=== PATIENT | female | born 1960 | race Caucasian/White ===

== ENCOUNTER → 2016-08-28 | Day surgery (SDC) | payer BC ==
[~2016-08-28] VITALS: Ht 165.1 cm; Wt 95.4 kg
[~2016-08-28] MED LIST: ADVIL200 MG PO; ASPIRIN325 MG PO; FLEXERIL10 MG PO; GINGER500 MG PO; GLUCOSAMINE CH1 EAC3 PO; LYRICA75 MG PO; MAGNESIUM250 M1 PO; PEPCID20 MG PO; PERCOCET 5-3251 EACH PO; POTASSIUM99 MG PO; THERA-VITE W/ B1 TAB PO; TUMS REGULAR ST1 TAB PO; TURMERIC500 MG PO; TYLENOL ARTHRI650 MG PO; TYLENOL EXTRA500 MG PO; VITAMIN D35000 UNI1 PO
== END ==
LOC: GPOC 08-20 14:00 → GSDC 08-20 14:00
PROC: 3E0S33Z Introduction of Anti-inflammatory into Epidural Space, Percutaneous Approach (ICD-10-PCS; principal; 2016-08-28)
DX: M48.06 Spinal stenosis, lumbar region (principal); M51.26 Other intervertebral disc displacement, lumbar region; Z79.82 Long term (current) use of aspirin; Z79.899 Other long term (current) drug therapy
CPT/HCPCS: J1030; J1040

== ENCOUNTER → 2016-09-25 | Day surgery (SDC) | payer BC ==
[~2016-09-25] VITALS: Ht 165.1 cm; Wt 97.1 kg
== END | disposition disaster alternative care site (69) ==
LOC: GPOC 09-24 14:00 → GSDC 12:00
PROC: 3E0R33Z Introduction of Anti-inflammatory into Spinal Canal, Percutaneous Approach (ICD-10-PCS; principal; 2016-09-25)
PROC: 3E0R3BZ Introduction of Anesthetic Agent into Spinal Canal, Percutaneous Approach (ICD-10-PCS; 2016-09-25)
DX: M51.16 Intervertebral disc disorders with radiculopathy, lumbar region (principal); M48.06 Spinal stenosis, lumbar region; M47.26 Other spondylosis with radiculopathy, lumbar region; Z79.82 Long term (current) use of aspirin; Z79.1 Long term (current) use of non-steroidal anti-inflammatories (NSAID); Z79.899 Other long term (current) drug therapy; Z88.8 Allergy status to other drugs, medicaments and biological substances; Z90.49 Acquired absence of other specified parts of digestive tract; Z98.51 Tubal ligation status; Z98.890 Other specified postprocedural states
CPT/HCPCS: J1040

== ENCOUNTER → 2016-10-09 | Day surgery (SDC) | payer BC | END | disposition disaster alternative care site (69) | LOC: GSDC 12:00 | PROC: 3E0R3BZ Introduction of Anesthetic Agent into Spinal Canal, Percutaneous Approach (ICD-10-PCS; principal; 2016-10-09) | PROC: 3E0R33Z Introduction of Anti-inflammatory into Spinal Canal, Percutaneous Approach (ICD-10-PCS; 2016-10-09) | DX: M47.817 Spondylosis without myelopathy or radiculopathy, lumbosacral region (principal); M48.06 Spinal stenosis, lumbar region; M51.26 Other intervertebral disc displacement, lumbar region; M46.96 Unspecified inflammatory spondylopathy, lumbar region; Z88.8 Allergy status to other drugs, medicaments and biological substances; Z79.82 Long term (current) use of aspirin; Z79.1 Long term (current) use of non-steroidal anti-inflammatories (NSAID); Z79.899 Other long term (current) drug therapy | CPT/HCPCS: J1030; J1040 ==

== ENCOUNTER → 2016-11-26 | Day surgery (SDC) | payer BC ==
[~2016-11-26] VITALS: Ht 167.6 cm; Wt 97.8 kg
--- NOTE | ~2016-11-26 | OR ---
PATIENT'S NAME: JAYSON DINERO [facility] AGE: 56 Y [address] ROOM: [place] [id number] LOCATION: [facility] [place] ADMIT DATE: 11/26/2016 OR/Procedure Report DISCHARGE DATE: FAMILY PHYSICIAN: PIA JURADO PA-C ATTENDING PHYSICIAN: Sultana Woods SURGEON: Sultana Woods MD COMPUTER AIDED DESIGN DESIGNER: DATE OF PROCEDURE: 11/26/2016 PREOPERATIVE DIAGNOSES: 1. Left L3-L4 disk herniation. 2. Left L3-L4 lateral recess stenosis. POSTOPERATIVE DIAGNOSES: 1. Left L3-L4 disk herniation. 2. Left L3-L4 lateral recess stenosis. 3. A very small dural laceration. OPERATIONS PROPOSED: 1. Left L3-L4 MED. 2. Left L3-L4 partial medial facetectomy and foraminotomy for decompression of the left L3-L4 lateral recess and nerve root. 3. Duraplasty using a piece of DuraGen. 4. Microscope. 5. Fluoroscopy with interpretation. DESCRIPTION OF PROCEDURE: Under general anesthesia, the patient was positioned prone. The back was prepped and draped in the usual fashion. A time-out process was then carried out. Next, spinal needle was placed just a fingerbreadths to the left of the midline, and directly opposite the L3-L4 disk space. This was confirmed fluoroscopically, and the position was marked on the skin. Next, a 2-cm incision was then carried out centered on this port, and following this, a K-wire was passed through this port to rest on the inferior part of the lamina of L3 directly opposite the L3-L4 disk space, and its position was confirmed fluoroscopically. Next, the muscle dilators were sequentially passed over the K-wire and each came to rest on the inferior part of the lamina of L3 and directly opposite the L3-L4 disk space, and the positions and trajectories were confirmed using fluoroscopy. Next, the tubular retractor was then passed over the muscle dilators, and it also came to rest on the inferior part of the lamina of L3 and centered at the L3-L4 disk space. After confirming this position fluoroscopically, we then attached the tubular retractor to the flexible arm of the flexible arm retractor. The flexible arm was then tightened. The muscle dilators and K-wire were removed. The C-arm was removed, and the microscope was brought in with the aid of the microscope. We removed the soft tissue from the inferior part of the lamina PATIENT'S NAME: JAYSON DINERO [facility] AGE: 56 Y [address] ROOM: [place], [place] [id number] LOCATION: [facility] [place] ADMIT DATE: 11/26/2016 OR/Procedure Report DISCHARGE DATE: FAMILY PHYSICIAN: PIA JURADO PA-C ATTENDING PHYSICIAN: Sultana Woods of L3, the superior part of the lamina of L4, and then using the drill, we drilled off the inferior part of the lamina of L3, and used the Kerrison rongeurs to do the partial hemilaminectomy and also the medial facetectomy. The facet was hypertrophied, and we had to remove the inferior facet of L3 primarily because by the time we finished the medial facetectomy, the facet was quite loose, and so we had to take it out. Now, we removed enough bone to be lateral to the dura. After we had removed the inferior part of the lamina of L3 and the medial portion of the facet and this included also removing the inferior facet of L3. We then excised the yellow ligament. While excising the yellow ligament close to the midline, there was a small zulay in the dura, and this was easily controlled putting a piece of Gelfoam on it. After that, we then paid attention to removing the lateral portion of the yellow ligament, and we did enough decompression so that we are just lateral to the dura. We went ahead and did a foraminotomy. We removed a small portion of the superior part of the lamina of L4 in order to adequately decompress the nerve root. After this was done, we had quite a bit of bleeding from the engorged epidural vessels, which we cauterized, and we eventually actually needed to use patties to tamponade those vessels in order for us to continue with what we were doing. We then retracted the dura and nerve roots medially. On doing this, we were able to see the herniating disk laterally. We then retracted the nerve root and dura using the nerve root retractor, and made an incision into the disk and flattened the disk on the lateral aspect. After this was done, the nerve root was quite free. We used powdered Gelfoam initially, which was soaked in thrombin to see if it would stop the bleeding, it did not. So, we had to go ahead and use regular Gelfoam soaked in thrombin, and waited five minutes plus. While we were waiting, we then got a small piece of DuraGen, and used it to seal off the small tear in the dura. When we did this, there was no more CSF leak from the site. Next, the Gelfoam was then removed, and the powdered Gelfoam was washed out. In spite of that, we just had very minimal bleeding. Next, the tubular retractor was removed. WOUND CLOSURE: Sutures were used to bring the subcutaneous fatty layers together, and then subcuticular stitches were used to bring the skin edges together, as well as Steri-Strips. CONDITION: The patient tolerated the procedure well, and was taken to the outpatient waiting area. SULTANA WOODS MD AEB/edmarl PATIENT'S NAME: JAYSON DINERO [facility] AGE: 56 Y [address] ROOM: [place] [id number] LOCATION: [facility] [place] ADMIT DATE: 11/26/2016 OR/Procedure Report DISCHARGE DATE: FAMILY PHYSICIAN: PIA JURADO PA-C ATTENDING PHYSICIAN: Sultana Woods /[id number] P d: 11/26/162035 t: 12/01/16 1610, OPERATIVE SUMMARY
== END | disposition disaster alternative care site (69) ==
LOC: GPOC 11-22 09:00 → GSDC 09:00
PROC: 0SB20ZZ Excision of Lumbar Vertebral Disc, Open Approach (ICD-10-PCS; principal; 2016-11-26)
PROC: 01NB0ZZ Release Lumbar Nerve, Open Approach (ICD-10-PCS; 2016-11-26)
DX: M51.26 Other intervertebral disc displacement, lumbar region (principal); M48.06 Spinal stenosis, lumbar region; Z90.49 Acquired absence of other specified parts of digestive tract; Z98.51 Tubal ligation status; Z79.82 Long term (current) use of aspirin; Z79.1 Long term (current) use of non-steroidal anti-inflammatories (NSAID); Z79.899 Other long term (current) drug therapy
CPT/HCPCS: C1763; J0690; J1100; J2001; J2405; J3010; J7120

== ENCOUNTER → 2017-01-20 | Outpatient (CLI) | payer BC | END | disposition disaster alternative care site (69) | LOC: GRAD 09:31 | DX: M53.3 Sacrococcygeal disorders, not elsewhere classified (principal); R93.7 Abnormal findings on diagnostic imaging of other parts of musculoskeletal system | CPT/HCPCS: A9503 ==

== ENCOUNTER → 2017-02-06 | Outpatient (CLI) | payer BC | END | disposition disaster alternative care site (69) | LOC: GRAD 09:25 | DX: M89.9 Disorder of bone, unspecified (principal); M47.897 Other spondylosis, lumbosacral region; K57.30 Diverticulosis of large intestine without perforation or abscess without bleeding ==